=== PATIENT | male | born 1955 | race Caucasian/White ===

== ENCOUNTER 2018-11-12 09:05 | Outpatient (CLI) | payer OTHER | END 2018-11-12 23:59 | disposition home or self-care (01) | LOC: ROC 09:05 | PROVIDERS: ATTEND Radiology Radiation Oncology | DX: Z08 Encounter for follow-up examination after completed treatment for malignant neoplasm (principal); Z85.841 Personal history of malignant neoplasm of brain | CPT/HCPCS: 99212; G0463 ==

== ENCOUNTER → 2019-03-15 | Outpatient (CLI) | payer OTHER ==
[~2019-03-15] MED LIST: GADOTERATE 10 MMOL/20 ML SYR ONE
== END | disposition home or self-care (01) ==
LOC: CFH 10:10
PROVIDERS: ATTEND Radiology Radiation Oncology
DX: C71.1 Malignant neoplasm of frontal lobe (principal); G93.89 Other specified disorders of brain; G93.0 Cerebral cysts
CPT/HCPCS: 70553; A9575

== ENCOUNTER → 2019-03-19 | Outpatient (CLI) | payer OTHER | END | disposition home or self-care (01) | LOC: ROC 08:06 | PROVIDERS: ATTEND Radiology Radiation Oncology | DX: Z08 Encounter for follow-up examination after completed treatment for malignant neoplasm (principal); Z85.841 Personal history of malignant neoplasm of brain | CPT/HCPCS: 99213; G0463 ==

== ENCOUNTER 2019-05-17 09:59 | Outpatient (CLI) | payer OTHER ==
[2019-05-17] MEDS ORDERED: GADOTERATE 10 MMOL/20 ML SYR ONE (11:09)
== END 2019-05-17 23:59 | disposition home or self-care (01) ==
LOC: CFH 09:59
PROVIDERS: ATTEND Radiology Radiation Oncology
DX: C71.1 Malignant neoplasm of frontal lobe (principal); J34.1 Cyst and mucocele of nose and nasal sinus; G31.89 Other specified degenerative diseases of nervous system
CPT/HCPCS: 70553; A9575

== ENCOUNTER → 2019-05-20 | Outpatient (CLI) | payer OTHER | END | disposition home or self-care (01) | LOC: ROC 07:25 | PROVIDERS: ATTEND Radiology Radiation Oncology | DX: Z08 Encounter for follow-up examination after completed treatment for malignant neoplasm (principal); G93.89 Other specified disorders of brain; Z85.848 Personal history of malignant neoplasm of other parts of nervous tissue; Z92.3 Personal history of irradiation; Z79.899 Other long term (current) drug therapy | CPT/HCPCS: 99212; G0463 ==

== ENCOUNTER 2019-06-17 09:10 | Outpatient (CLI) | payer OTHER | END 2019-06-17 23:59 | disposition home or self-care (01) | LOC: ROC 09:10 | PROVIDERS: ATTEND Radiology Radiation Oncology | DX: C71.1 Malignant neoplasm of frontal lobe (principal) | CPT/HCPCS: 99213; G0463 ==

== ENCOUNTER → 2019-08-19 | Outpatient (CLI) | payer OTHER | END | disposition home or self-care (01) | LOC: ROC 08:05 | PROVIDERS: ATTEND Radiology Radiation Oncology | DX: C71.1 Malignant neoplasm of frontal lobe (principal) | CPT/HCPCS: 99213; G0463 ==

== ENCOUNTER 2019-09-17 07:58 | Outpatient (CLI) | payer OTHER | END 2019-09-17 23:59 | disposition home or self-care (01) | LOC: ROC 07:58 | PROVIDERS: ATTEND Radiology Radiation Oncology | DX: Z08 Encounter for follow-up examination after completed treatment for malignant neoplasm (principal); C71.1 Malignant neoplasm of frontal lobe | CPT/HCPCS: 99213; G0463 ==

== ENCOUNTER → 2020-01-12 | Outpatient (CLI) | payer OTHER | END | disposition home or self-care (01) | LOC: ROC 07:18 | PROVIDERS: ATTEND Radiology Radiation Oncology | DX: C71.1 Malignant neoplasm of frontal lobe (principal) | CPT/HCPCS: 99213; G0463 ==

== ENCOUNTER → 2020-02-16 | Outpatient (CLI) | payer OTHER | END | disposition home or self-care (01) | LOC: ROC 11:28 | PROVIDERS: ATTEND Radiology Radiation Oncology | DX: C71.1 Malignant neoplasm of frontal lobe (principal) | CPT/HCPCS: 99442 ==